=== PATIENT | male | born 1975 ===

== ENCOUNTER → 2023-08-15 16:16 | Outpatient (BNVA) | payer OTHER, SELFPAY | PROVIDERS: Family Provider Internal Medicine; PCP Internal Medicine; Visit Provider Nurse Practitioner | DX: R39.9 Unspecified symptoms and signs involving the genitourinary system (principal) | CPT/HCPCS: 81000; 87491; 87591; 87661 ==

== ENCOUNTER 2024-11-20 09:40 | Day surgery (SDC) | payer OTHER, SELFPAY ==
[2024-11-20] MEDS: sodium chloride 0.9% 1,000 ML 15 ML IV (10:18)
[2024-11-20 10:21] VITALS: BP 147/97; PULSE 78; RESP 16; TEMP 36.3; O2SAT 95
[2024-11-20 10:22] LABS: Glucose Point of Care 116 mg/dL (70-110)
--- NOTE | 2024-11-20 11:44 | ANES.PREANE2 ---
Pre-Anesthetic Assessment Height/Weight: Height 1.68 m Weight 111.13 kg Temp Pulse Resp BP Pulse Ox O2 Del Method 97.3 F L 78 16 147/97 95 Room Air 11/20/24 10:21 11/20/24 10:21 11/20/24 10:21 11/20/24 10:21 11/20/24 10:21 11/20/24 10:21 Preop Diagnosis: screening Operation Date: 11/20/24 11:30 Proposed Procedures p Colonoscopy 19652, G0121, Z12.11(Not Applicable) - Orlin Meier MD Familial anesthetic complications: none Was Beta Harjeet taken within 24 hours: N/A Was Clonidine taken within 24 hours: N/A Last intake: Intake Last Liquid Date 11/20/24 Last Liquid Time 08:00 Last Solid Date 11/18/24 Last Solid Time 17:00 Social No alcohol and No tobacco Exam alert and oriented x 3 Airway Submandibular: within normal limits Cervical ROM: within normal limits Mallampati: Class II Dentition: full Pulmonary None reported CV/HEM Hypertension None reported Hepatic None reported GI None reported Metabolic Diabetes Mellitus and Morbid Obesity Neuropsych None reported Anesthetic Plan ASA status: 3 Anesthesia: Anesthesia Evaluation and MAC Risk of > 500 ml blood loss (7ml/kg in children): No Medications/Allergies Home Medications ?Medication ?Instructions ?Recorded ?Confirmed ?Last Taken ?Type amlodipine 5 mg tablet 5 mg PO DAILY 08/15/23 11/15/24 11/15/24 History metformin 500 mg tablet 500 mg PO DAILY 08/15/23 11/15/24 11/15/24 History Allergies Allergy/AdvReac Type Severity Reaction Status Date / Time No Known Allergies Allergy Verified 11/15/24 10:19 Current Medications Generic Name Dose Route Start Last Admin Trade Name Freq PRN Reason Stop Dose Admin Sodium Chloride 1,000 mls @ 15 mls/hr 11/20/24 10:07 11/20/24 10:18 Sodium Chloride 0.9% IV 11/21/24 10:06 15 mls/hr .Q24H PRN Administration COLONOSCOPY FLUIDS PFSH Anesthesia Social History Smoking and tobacco/nicotine status: unknown if used tobacco/nicotine
--- NOTE | 2024-11-20 12:03 | W.PM.OPSFHP ---
Same Day Surgery H&P Indication for Procedure/HPI DATE OF PROCEDURE: November 20, 2024 CHIEF COMPLAINT/INDICATIONFOR SURGICAL PROCEDURE: screening colonoscopy PREOP DIAGNOSIS: screening PLANNED PROCEDURE: Operation Date: 11/20/24 11:30 Proposed Procedures p Colonoscopy 82964, G0121, Z12.11(Not Applicable) - Orlin Meier MD Medications/Allergies* Home Medications ?Medication ?Instructions ?Recorded ?Confirmed ?Type amlodipine 5 mg tablet 5 mg PO DAILY 08/15/23 11/15/24 History metformin 500 mg tablet 500 mg PO DAILY 08/15/23 11/15/24 History Allergies/Adverse Reactions Allergy/AdvReac Type Severity Reaction Status Date / Time No Known Allergies Allergy Verified 11/15/24 10:19 Current Medications: Generic Name Dose Route Start Last Admin Trade Name Freq PRN Reason Stop Dose Admin Sodium Chloride 1,000 mls @ 15 mls/hr 11/20/24 10:07 11/20/24 10:18 Sodium Chloride 0.9% IV 11/21/24 10:06 15 mls/hr .Q24H PRN Administration COLONOSCOPY FLUIDS Pertinent History/Comorbid Conditions* Social History Smoking and tobacco/nicotine status: unknown if used tobacco/nicotine Pertinent Exam Findings alert, oriented x 3, clear to auscultation bilaterally, regular rate & rhythm and procedure specific exam findings abdomen soft, nt, nd Recommendations Risks and benefits of procedure reviewed Surgery/Procedure today Coding Level of Care Code Acute Code for Chg Fwd
[2024-11-20 12:16] VITALS: BP 128/92; PULSE 77; RESP 18; TEMP 36.1; O2SAT 92
[2024-11-20 12:25] VITALS: BP 123/93; PULSE 77; RESP 18; TEMP 36.2; O2SAT 95
--- NOTE | 2024-11-20 12:46 | ANE.PACU2 ---
Inpatient post-anesthesia follow up: Airway intact: Yes Vital signs: Temperature 97.2 F Pulse Rate 77 Respiratory Rate 18 Blood Pressure 123/93 Pulse Oximetry 95 Oxygen Delivery Me thod Room Air Oxygen Flow Rate Fraction of Inspir ed Oxygen Hydration adequate: Yes Nausea and vomiting: No Pain level: 1 Mental status: Baseline
== END 2024-11-20 12:46 | disposition home or self-care (01) ==
PROVIDERS: PCP Internal Medicine; Visit Provider Student in an Organized Health Care Education/Training Program
PROC: 0DJD8ZZ Inspection of Lower Intestinal Tract, Via Natural or Artificial Opening Endoscopic (ICD-10-PCS; CPT 45378; principal; 2024-11-20 11:30)
DX: Z12.11 Encounter for screening for malignant neoplasm of colon (principal); K57.30 Diverticulosis of large intestine without perforation or abscess without bleeding; E11.9 Type 2 diabetes mellitus without complications; E66.01 Morbid (severe) obesity due to excess calories; Z68.39 Body mass index [BMI] 39.0-39.9, adult; Z79.84 Long term (current) use of oral hypoglycemic drugs; Z79.899 Other long term (current) drug therapy
CPT/HCPCS: 36416; 45378; 82962; J2704; J7030